=== PATIENT | female | born 2000 | race Caucasian/White ===

== ENCOUNTER 2022-07-10 13:45 | Outpatient (RCR) | payer OTHER, SELFPAY | END 2022-07-10 14:27 | disposition home or self-care (01) | PROVIDERS: PCP Pediatrics; Visit Provider Family Medicine | DX: M54.2 Cervicalgia (principal); M54.12 Radiculopathy, cervical region; M54.6 Pain in thoracic spine; Z51.89 Encounter for other specified aftercare | CPT/HCPCS: 97110; 97112; 97161 ==

== ENCOUNTER 2023-02-28 15:30 | Outpatient (RCR) | payer OTHER, SELFPAY | END 2023-06-28 23:59 | disposition home or self-care (01) | PROVIDERS: PCP Pediatrics; Visit Provider Family Medicine | DX: M54.50 Low back pain, unspecified (principal); G89.29 Other chronic pain; Z51.89 Encounter for other specified aftercare | CPT/HCPCS: 97110; 97162 ==

== ENCOUNTER 2023-10-21 06:27 | Outpatient (CLI) | payer OTHER, SELFPAY ==
--- NOTE | 2023-10-21 07:38 | W.ANESCHARGE ---
Anesthesia Charges Start Date/Time Anesthesia Start Date: 10/21/23 Anesthesia Start Time: 07:20 Stop Date/Time Anesthesia Stop Date: 10/21/23 Anesthesia Stop Time: 07:34
--- NOTE | 2023-10-21 09:02 | W.ANESCHARGE ---
Anesthesia Charges Start Date/Time Anesthesia Start Date: 10/21/23 Anesthesia Start Time: 07:20 Stop Date/Time Anesthesia Stop Date: 10/21/23 Anesthesia Stop Time: 07:34
== END 2023-10-21 06:28 | disposition home or self-care (01) ==
LOC: OP CLINIC 06:28
PROVIDERS: PCP Family Medicine; Visit Provider Internal Medicine Gastroenterology
DX: R10.13 Epigastric pain (principal); K21.9 Gastro-esophageal reflux disease without esophagitis; R19.8 Other specified symptoms and signs involving the digestive system and abdomen; R11.0 Nausea; R11.15 Cyclical vomiting syndrome unrelated to migraine
CPT/HCPCS: 00731; 43239; 88305; 88342; J2704